=== PATIENT | female | born 1995 | race African-American/Black ===

== ENCOUNTER 2019-01-15 15:25 | Day surgery (SDC) | payer OTHER ==
[2019-01-15 16:21] VITALS: BP 118/79; BMI 29.1
--- NOTE | 2019-01-15 17:53 | PDOC.FPROB ---
FMR OB H&P: HPI - History of Present Illness Chief Complaint: n/v, sharp lower abd pain History of Present Illness: 23 yo @ 26.4wks by 8.1wk US presenting with 1 day history of abd pain. Started yesterday, described as sharp lasting a few seconds, occurring every 20 min approximately. Also has history of N/V for 3-4 days and endorses decreased PO intake. Endorses floaters/spots in vision for a few weeks. Denies severe RIVERA, RUQ pain, LOF, VB, dysuria, burning with urination. She has hx of pre-e in previous 2016. Was induced at 37 weeks. Returned to hospital about 5 days after delivery with severe range BPs. Was started on labetalol. Has not had any issues with BP during this . Also had miscarriage at 7 weeks. She did have cholecystectomy in Sep 2018. Last week patient was diagnosed with rabia off pap smear, treated with miconazole topical. Primary Care Physician: MEL Faulkner MD FMR OB H&P: Current - Care : 3 Para: 1 Gestational age: 26.4 Dating Criteria: 8.1wk US Total weight gain: 04/19/2019 - OB Labs Blood type: B RH: positive Antibody Screen: negative HIV: negative RPR: negative HepBsAg: negative Rubella: immune Urine drug screen: negative A1c: 5.1 GBS: unknown - Anatomy Survey Anatomy survey: posterior placenta FMR OB H&P: History - Past Medical History PMH: Pre-eclampsia in previous - OB History OB History: 1st: term vaginal delivery in Sep 2016 2nd: miscarriage at 7 weeks - [employer]GER History [employer]GER History: rabia last week, treated with topical miconazole - Surgical History Sx History: cholecystectomy Sep 2018 - Social History Social History: Denies tobacco, EtOH, rec drug use - Family History Family History: Mom: Diabetes Both parents: HTN FMR OB H&P: Medications - Current Home Medications: Medication Instructions Recorded Confirmed Type Vit No.130/Iron/Folic 1 each PO DAILY 09/06/16 01/15/19 History [ Tablet] Aspirin [Ecotrin Low Strength] 1 tab PO DAILY 01/15/19 01/15/19 History Allergies/Adverse Reactions: Allergies Allergy/AdvReac Type Severity Reaction Status Date / Time No Known Allergies Allergy Verified 09/16/16 07:29 FMR OB H&P: ROS - Review of Systems General: denies: fever/chills Eyes: reports: vision changes, floaters Cardiovascular: denies: chest pain, palpitation Respiratory: denies: shortness of breath Gastrointestinal: reports: abdominal pain (lower abd b/l radiating to back), nausea, vomiting, diarrhea. denies: constipation, bright red blood Genitourinary (Female): denies: dysuria, hematuria, polyuria Neurologic: denies: numbness, syncope Integumentary: denies: itching, rash Hematologic/Lymphatic: denies: prolonged or excessive bleeding FMR OB H&P: Vital Signs - Maternal Vital signs: Vital Signs - First Documented Pulse Resp BP 74 18 118/79 01/15/19 15:48 01/15/19 15:48 01/15/19 15:48 - Heart Tones Baseline: 140 Variability: moderate Acceleration: absent Deceleration: absent Category: category 1 [place] contractions every: none FMR OB H&P: Physical Exam - Physical Exam General: NAD, awake, alert and oriented HEENT: PERRLA, EOMI Heart: RRR, normal S1/S2 General: CTAB, no respiratory distress Abdomen: soft, other (TTP lower abdomen radiating to back) Musculoskeletal: pulses present Neurological: sensation to pain,touch and proprioception grossly normal Skin: capillary refill <2 seconds Lymphatic: no unusual bruising or bleeding Psychiatric: intact recent and remote memory, good judgement and insight FMR OB H&P: A/P - Problem List (1) History of pre-eclampsia Current Visit: Yes Status: Acute Code(s): Z87.59 - PERSONAL HISTORY OF COMP OF PREG, CHLDBRTH AND THE PUERP Discussion: Date/Time: 01/15/191746 1. IUP at 26.4 weeks by 8.1wk US -ddx includes UTI, will check UA -check FFN and do cervical exam check -also check cervical length 2. candidiasis -continue with miconazole 3. Hx of pre-eclampsia -no elevated BP in current -continue with ASA This H&P was discussed with Dr. Angeles who agrees with the above documentation and plan. Addendum - Attending - Attending Attestation Date/Time: 01/15/191921 I personally evaluated the patient and discussed the management with Dr. Bass I agree with the History, Examination, Assessment and Plan documented above with any addition or exceptions noted below. Dr Chan note includes a comment about "latent labor...augmentation.../+ 2". THis was entered in error. While I suspect her pain is simply round ligament pain, we are evaluating for UTI and PTL. FHT's are normal.
[2019-01-15 18:04] LABS: Bilirubin Negative (Negative); Blood, Urine Negative (Negative); Clarity CLEAR (Clear); Glucose, Urine (Dipstick) Negative (Negative); Leukocyte Negative (Negative); Nitrite Negative (Negative); Protein, Urine (Dipstick) Negative (Neg-Trace); Specific Gravity, Urine 1.015 (1.002-1.036); pH, Urine 7.5 (5.0-9.0)
[2019-01-15 18:06] LABS: Bacteria/HPF None Seen HPF (None Seen); Hyaline Casts/LPF 4-6 HYALINE CAST LPF (0-3 Hyaline); Pathc Cast-AUWi Flag 0.81 (0-2.49); RBC/HPF None Seen HPF (0-3); Squamous Epithelial 0-3 HPF (0-3); WBC/HPF 0-3 HPF (0-3)
[2019-01-15 18:09] LABS: Urine Culture Reflex No No
[2019-01-15 18:21] LABS: FFN Internal QC Analyzer PASS (PASS); FFN Internal QC Cassette PASS (PASS); Fetal Fibronectin Negative (Negative)
--- NOTE | 2019-01-15 20:42 | ULT ---
Ultrasound transvaginal limited: DATE: 01/15/2019 Time: 7:49 PM HISTORY: 23-year-old female at 26 weeks. Evaluate cervical length. FINDINGS: The cervix is closed and measures 5 cm in length. What appears to be cephalic presentation head component is near the cervix. IMPRESSION: Closed cervix 5 cm in length.
--- NOTE | 2019-01-15 20:45 | PDOC.EVN ---
Event Note - Event Note Event Note: 20:15 on 01/15/2019 FFN: negative Cervical exam: 09/09/high TVUS with cervical length between 4.86-5.15 cm No contractions Patient not in labor based on assessment above. Counseled on round ligament pain. Advised patient that she can take tylenol 1g q6h as needed. Patient advised to schedule hospital follow up visit at [facility] with primary OB provider. Silvia Lewis, DO PGY-2
== END 2019-01-15 20:17 | disposition home or self-care (01) ==
LOC: L&D/OP 15:25
PROVIDERS: ATTEND Family Medicine
DX: O99.89 Other specified diseases and conditions complicating pregnancy, childbirth and the puerperium (principal); R10.30 Lower abdominal pain, unspecified; O98.812 Other maternal infectious and parasitic diseases complicating pregnancy, second trimester; B37.9 Candidiasis, unspecified; O21.2 Late vomiting of pregnancy; Z87.59 Personal history of other complications of pregnancy, childbirth and the puerperium; Z3A.26 26 weeks gestation of pregnancy; Z79.82 Long term (current) use of aspirin
CPT/HCPCS: 51701; 81001; 82731; 99284; A4353

== ENCOUNTER 2019-01-21 17:08 | Emergency (ER) | payer OTHER ==
[2019-01-21 19:24] LABS: #Lymphocytes 1.3 thou/uL (1.20-3.40); #Monocytes 0.5 thou/uL (0.11-0.59); #Neutrophils 4.3 thou/uL (1.40-6.50); %Basophils 0.7 % (0.0-1.0); %Eosinophils 0.3 % (0.0-10.0); %Lymphocytes 21.5 % (21.0-51.0); %Monocytes 8.7 % (0.0-10.0); %Neutrophils 68.8 % (42.0-75.0); Hemoglobin 9.8 g/dL (12.0-16.0); Mean Corpuscular HGB CONC 33.8 g/dL (32.0-36.0); RBC Distribution Width 12.5 % (11.5-14.5); Red Blood Cell (RBC) Count 3.49 mill/uL (4.20-5.40); White Blood Cell (WBC) Count 6.2 thou/uL (4.8-10.8)
[2019-01-21 19:28] LABS: BHCG - Serum POSITIVE (NEGATIVE)
[2019-01-21 19:29] LABS: Pregs Control Background? CLEAR/WHITE (CLR/WHITE); Pregs Control Bar Appear? YES (CONTROL BAR)
[2019-01-21 19:54] LABS: ALT (SGPT) 8 U/L (8-55); AST (SGOT) 16 U/L (5-34); Albumin 3.2 g/dL (3.5-5.0); Alkaline Phosphatase 127 U/L (40-150); Anion Gap 12 mmol/L (10-20); BUN (Urea Nitrogen) 6 mg/dL (7.0-18.7); Bilirubin, Total 0.3 mg/dL (0.2-1.2); CK (CPK) 28 U/L (29-168); Calc. Creatinine Clearance 0 mL/min (70-130); Calcium 8.6 mg/dL (7.8-10.44); Carbon Dioxide 19 mmol/L (22-29); Chloride 107 mmol/L (98-107); Estimated GFR-MDRD Greater than 90; Globulin 3.8 g/dL (2.4-3.5); Glucose 68 mg/dL (70-105); Potassium 3.5 mmol/L (3.5-5.1); Sodium 134 mmol/L (136-145)
[2019-01-21 20:01] LABS: Hypochromia SLIGHT = 6-15 cells (100X) (0-5/hpf); MDiff Complete? YES; Mean Platelet Volume 7.3 fL (7.4-10.4); Platelet Count 269 thou/uL (130-400); Platelet Morphology Comment Appears Adequate
--- NOTE | 2019-01-23 16:54 | EKG ---
Test Reason : TACHY Blood Pressure : / mmHG Vent. Rate : 121 BPM Atrial Rate : 121 BPM P-R Int : 000 ms QRS Dur : 078 ms QT Int : 340 ms P-R-T Axes : 000 047 -12 degrees QTc Int : 482 ms Sinus tachycardia Nonspecific T wave abnormality Abnormal ECG Confirmed by OLGA DOE, HENRIQUE Still ([id number]), editorial specialist DUY VINCENT ([id number]) on 01/23/2019 4:54:24 PM Referred By: Confirmed By:HENRIQUE ESPINOZA MD
== END 2019-01-21 20:18 | disposition home or self-care (01) ==
LOC: ERS 17:08 → L&D/OP 17:08 → ERS 17:08 → EDSTATUS 17:15 → ERS 20:18
DX: D50.9 Iron deficiency anemia, unspecified (principal)
CPT/HCPCS: 36415; 80053; 82550; 84484; 84703; 85025; 86850; 86900; 86901; 93005

== ENCOUNTER 2019-01-21 20:29 | Day surgery (SDC) | payer OTHER ==
--- NOTE | 2019-01-21 20:32 | PDOC.FPROB ---
FMR OB H&P: HPI - History of Present Illness Chief Complaint: sent from clinic for iron infusion Indentification: History of Present Illness: 23YO @ 27.3 weeks by 8.1 week theresa who presented to the ER for evaluation for N/V and tachycardia as well as symptomatic anemia by her PCP. Per chart review, the patient was initially going to be sent straight to L&D for and iron infusion but the department was too full to take on another patient so she was sent to the ER instead for further evaluation. Per the patient, she has suffered from anemia and hyperemesis throughout this but has been extremely symptomatic over the last 3-4 days with reported frequent dizziness and spotty vision upon standing and N/V up to 4 times per day. She was seen in clinic on 01/16 for a routine office visit and her Hgb was noted to be 8.8 so she was started on PO ferrous sulfate. However, the patient reports she has been unable to start this medication as she could not afford it. She was seen again in the office today and noted to be tachycardic in the 130s and was therefore sent to the ER for further evaluation. The patient denies any associated fever/chills, chest pain, SOB, persistent headaches not relieved with tylenol, contractions, or vaginal bleeding, LOF or discharge. She endorses regular movement. Primary Care Physician: STEPHEN Faulkner FMR OB H&P: Current - Care : 3 Para: 1011 Gestational age: 27.3 weeks Due date: 04/19/19 Dating Criteria: 8.1 week sono - OB Labs Blood type: B RH: positive Antibody Screen: negative HIV: negative RPR: negative HepBsAg: negative Rubella: immune H&H: 9.8/28.9 today FMR OB H&P: History - Past Medical History PMH: h/o migraine headaches - OB History OB History: first - pre-e with severe features & delivered at 36.6 weeks second- SAB @ 7 weeks - Surgical History Sx History: cholecystectomy during this - Social History Social History: No TAD - Family History Family History: HTN in both parents FMR OB H&P: Medications - Current Home Medications: Medication Instructions Recorded Confirmed Type Aspirin [Ecotrin Low Strength] 1 tab PO DAILY 01/15/19 01/15/19 History Iron Fum,Ps/Folic/Bcomp,C No.9 1 cap PO DAILY #90 capsule 01/21/19 Rx [Integra Plus] Allergies/Adverse Reactions: Allergies Allergy/AdvReac Type Severity Reaction Status Date / Time No Known Allergies Allergy Verified 09/16/16 07:29 FMR OB H&P: ROS - Review of Systems General: reports: fatigue. denies: fever/chills, weight/appetite/sleep changes Eyes: reports: vision changes, scotomas (while standing) ENT: denies: nasal congestion, sore throat Cardiovascular: denies: chest pain, palpitation, edema Respiratory: denies: cough, shortness of breath Gastrointestinal: reports: nausea, vomiting. denies: abdominal pain (lower ligamentous groin/abdominal pain with movement), diarrhea, constipation Genitourinary (Female): denies: dysuria, hematuria, vaginal discharge, vaginal pain, vaginal bleeding, contractions Musculoskeletal: reports: pain Neurologic: reports: headache. denies: syncope Endocrine: reports: cold intolerance FMR OB H&P: Vital Signs - Maternal Vital signs: BP: 118/78 HR: 108 - Heart Tones Baseline: 140 Variability: moderate Acceleration: present Deceleration: absent [place] contractions every: none FMR OB H&P: Physical Exam - Physical Exam General: NAD, awake, alert and oriented HEENT: normocephalic and atraumatic, MMM, conjunctiva clear, grossly normal vision, grossly normal hearing Neck: supple, FROM Heart: RRR, normal S1/S2, no murmurs/rubs/gallops, pulses present, no edema General: CTAB, no respiratory distress, good air movement, no rales/rhonchi, no wheezing, no retractions Abdomen: soft, gravid, non-tender, bowel sound present Musculoskeletal: normal gait and station, pulses present, FROM in all four extremities Neurological: cranial nerves II through XII intact, sensation to pain,touch and proprioception grossly normal, no focal deficit Skin: no rash, good tugor, capillary refill <2 seconds Lymphatic: no unusual bruising or bleeding, no purpura, no petechia Psychiatric: intact recent and remote memory, good judgement and insight, normal mood and affect FMR OB H&P: Results - Labs Lab results: Laboratory Tests 01/21/19 18:53 Hgb 9.8 L Hct 28.9 L FMR OB H&P: A/P - Problem List (1) Hyperemesis complicating , antepartum Status: Acute Code(s): O21.0 - MILD HYPEREMESIS GRAVIDARUM (2) Iron deficiency anemia Status: Acute Code(s): D50.9 - IRON DEFICIENCY ANEMIA, UNSPECIFIED (3) History of pre-eclampsia Status: Acute Code(s): Z87.59 - PERSONAL HISTORY OF COMP OF PREG, CHLDBRTH AND THE PUERP (4) Positive GBS test Status: Acute Code(s): B95.1 - STREPTOCOCCUS, GROUP B, CAUSING DISEASES CLASSD ELSWHR Comment: PCN x3 Disposition: 23YO @ 27.3 weeks sent over from clinic for evaluation for a possible iron infusion for symptomatic anemia in . Iron deficiency anemia in pregnany: - Patient's iron only 8.8 in clinic and actually improved to 9.8 on presentation today. N/V/headaches and orthostasis more likely related to hyperemesis and patient's Hgb level not within transfusion range today so will hold not transfuse today. Counseled patient on need to start PO iron and will ensure script sent in is affordable. Hyperemesis in : - No N/V since presentation & is s/p 1L of IVFs in the ER as she was initially tachycardic in the 110s but HR now down to 108. Is tolerating PO well. - FHTs reassuring with baseline in the 140s and variability and accels present. No contractions noted. -Was just prescribed diclegis today in clinic but will send be unable to afford to wrote out written dosing for generic unisom and pyridoxine combo for patient to try. Will have patient follow-up in clinic in 1 week to ensure nausea is improving. h/o pre-e in prior : - Aware, patient's BPs WNLs and asymptomatic. Will continue ppx ASA. Dispo: Will d/c home with close follow-up in clinic in 1 week. Discussion: Date/Time: 01/21/192030 This H&P was discussed with Dr. Padgett who agrees with the above documentation and plan. Addendum - Attending - Attending Attestation Date/Time: 01/21/192248 I personally evaluated the patient and discussed the management with Dr. Grissom I agree with the History, Examination, Assessment and Plan documented above with any addition or exceptions noted below -.23YO @ 27.3 weeks by 8.1 week theresa who presented to the ER for evaluation for N/V and tachycardia. Noted to be anemic on labs 2 weeks ago and PCP had concern for symptomatic anemia. Patient initially seen in ER and repeat H/H=9.8/28.9. She reports N/V throughout this but has been extremely symptomatic over the last 3-4 days with reported frequent dizziness and spotty vision upon standing and N/V up to 4 times per day. She was seen again in the office today and noted to be tachycardic in the 130s and was therefore sent to the ER for further evaluation. The patient denies any associated fever/chills, chest pain, SOB, persistent headaches not relieved with tylenol, contractions, or vaginal bleeding, LOF or discharge. She endorses regular movement. Afebrile VSS. Agree with resident's exam. A/P: 1) Tachycardia- improved after fluids; suspect element of dehydration given patient's history of N/V. Po challenge given and tolerated well. Given instructions to take unisom and B6. 2) Anemia - H/H improved. Continue to monitor. New rx sent for oral iron. D/c home and follow- up with PCP
[2019-01-21] MEDS ORDERED: Iron Sucrose Complex 500 MG in Sodium Chloride 0.9% 250 ML 250 ML IVPB SCH (20:45)
[2019-01-21] MEDS ORDERED: Acetaminophen 500 MG TAB PO SCH (20:45)
[2019-01-21 20:59] VITALS: BMI 29.2
== END 2019-01-21 22:15 | disposition home or self-care (01) ==
LOC: L&D/OP 20:29
PROVIDERS: ATTEND Student in an Organized Health Care Education/Training Program
DX: O21.0 Mild hyperemesis gravidarum (principal); O99.012 Anemia complicating pregnancy, second trimester; D50.9 Iron deficiency anemia, unspecified; O99.89 Other specified diseases and conditions complicating pregnancy, childbirth and the puerperium; R00.0 Tachycardia, unspecified; O99.352 Diseases of the nervous system complicating pregnancy, second trimester; G43.909 Migraine, unspecified, not intractable, without status migrainosus; Z87.59 Personal history of other complications of pregnancy, childbirth and the puerperium; Z90.49 Acquired absence of other specified parts of digestive tract; Z79.82 Long term (current) use of aspirin; Z3A.27 27 weeks gestation of pregnancy
CPT/HCPCS: 36415; 80053; 82550; 84484; 84703; 85025; 86850; 86900; 86901; 93005; 96360; 99282; J1756; J7050

== ENCOUNTER 2019-04-15 06:52 | Inpatient (IN) | payer OTHER ==
[2019-04-15 07:21] VITALS: BMI 30.6
[2019-04-15] MEDS ORDERED: Penicillin G Potassium 5 MILL.UNITS VIAL ONE (07:31)
[2019-04-15] MEDS ORDERED: Fentanyl 4 mcg/Bup 0.1% Cadd 100 ML ONE (07:33)
[2019-04-15] MEDS: Lactated Ringer's 1,000 ML IV SCH ×2 (07:40→15:03)
--- NOTE | 2019-04-15 07:41 | PDOC.FPROB ---
FMR OB H&P: HPI - History of Present Illness Chief Complaint: TIUP, in labor Indentification: History of Present Illness: Pt is a @ 39.3 weeks who presents with contractions beginning @ 0500, starting q2-3 mins, painful; w/o vaginal fluid, discharge or bleeding. Pt complains of nausea. She denies fever, chills. Hx difficult to obtain due to painful, regular contractions. Primary Care Physician: VIRGINIE Faulkner FMR OB H&P: Current - Care : 3 Para: 1011 Gestational age: 39.3 Dating Criteria: 8.1 week sono Course/Complications: Hx of Gestational HTN during previous preganancy, Pre-E after previous - OB Labs Blood type: B RH: positive Antibody Screen: negative HIV: negative RPR: negative HepBsAg: negative Rubella: immune GBS: positive FMR OB H&P: History - Past Medical History PMH: History of migraine headaches - OB History OB History: Hx of Pre-E in 1st , delivery at 37.2 wks via . - Surgical History Sx History: Cholecystectomy this - Family History Family History: HTN in both parents. FMR OB H&P: Medications - Current Home Medications: Medication Instructions Recorded Confirmed Type Aspirin [Ecotrin Low Strength] 1 tab PO DAILY 01/15/19 01/15/19 History Iron Fum,Ps/Folic/Bcomp,C No.9 1 cap PO DAILY #90 capsule 01/21/19 04/15/19 Rx [Integra Plus] Allergies/Adverse Reactions: Allergies Allergy/AdvReac Type Severity Reaction Status Date / Time No Known Allergies Allergy Verified 09/16/16 07:29 FMR OB H&P: ROS - Review of Systems General: denies: fever/chills, weight/appetite/sleep changes ENT: denies: nasal congestion, rhinorrhea Cardiovascular: denies: chest pain, palpitation Respiratory: denies: cough, congestion Gastrointestinal: denies: abdominal pain, indigestion Genitourinary (Female): denies: dysuria, hematuria Musculoskeletal: denies: pain, stiffness Neurologic: denies: numbness, seizures Integumentary: denies: itching, rash FMR OB H&P: Vital Signs - Maternal Vital signs: Vital Signs - First Documented Temp Pulse Resp BP 98.5 F 86 18 133/96 H 04/15/19 07:16 04/15/19 07:16 04/15/19 07:16 04/15/19 07:16 - Heart Tones Baseline: 120 Variability: moderate Acceleration: absent Deceleration: absent Category: category 1 FMR OB H&P: Physical Exam - Physical Exam General: awake, alert and oriented HEENT: normocephalic and atraumatic, EOMI Neck: supple, FROM Chest: non-tender to palpation, no lesions Heart: normal S1/S2 General: CTAB, no respiratory distress Abdomen: soft, gravid, fundus(cm) Musculoskeletal: normal gait and station, pulses present Neurological: cranial nerves II through XII intact, no focal deficit Skin: no rash, capillary refill <2 seconds Lymphatic: no purpura, no petechia Psychiatric: good judgement and insight, normal mood and affect - Pelvic Exam Membranes: Intact FMR OB H&P: A/P - Problem List (1) History of pre-eclampsia Current Visit: No Status: Acute Code(s): Z87.59 - PERSONAL HISTORY OF COMP OF PREG, CHLDBRTH AND THE PUERP (2) Positive GBS test Current Visit: No Status: Acute Code(s): B95.1 - STREPTOCOCCUS, GROUP B, CAUSING DISEASES CLASSD ELSWHR Comment: PCLeni x3 Disposition: # [id number], TIUP, 39.3 weeks by 8.1 week Sono # Active Labor Pt presented at 5, 100, -2 and quickly progressed to 8 cm. Epidural placed. Baseline Heart Tones 130's, moderate variability, no decels/accels. - zofran prn nausea # GBS Positive - penicillin initiated # Hx of Pre-E after first - monitor blood pressures Diet: NPO Fluids: LR 125 mls/hr Dispo: Admit for active labor. Discussion: Date/Time: 04/15/19740 This H&P was discussed with [] and [] who agree with the above documentation and plan. Addendum - Attending - Attending Attestation Date/Time: 04/15/191908 I personally evaluated the patient and discussed the management with Dr. Aponte I agree with the History, Examination, Assessment and Plan documented above with any addition or exceptions noted below- 23 yo @ 39.3 weeks presented with ctx. Denies LOF, VB. (+) FM Afebrile VSS SVE 8/C/-1, Category [address] [place]- ctx q2-3 min. A/P: 1) IUP @ 39.3 weeks in advanced labr- Admit to L& D; anticipate soon. GBS (+) started on PCN prophylaxis.
[2019-04-15] MEDS ORDERED: Promethazine HCl 25 MG/ML VIAL IM PRN ×2 (07:47→08:49)
[2019-04-15] MEDS ORDERED: Ondansetron PF 4 MG/2 ML Vial IVP PRN ×2 (07:47→08:49)
[2019-04-15] MEDS ORDERED: Butorphanol Tartrate 1 MG/ML VIAL SLOW IVP PRN (07:47)
[2019-04-15] MEDS ORDERED: Lidocaine 1% (PF) 30 ML VIAL SC PRN (07:47)
[2019-04-15] MEDS ORDERED: NS / Oxytocin 40 units/1000ml 1,000 ML IV PRN (07:47)
[2019-04-15] MEDS ORDERED: Ibuprofen 800 MG TAB PO PRN (07:47)
[2019-04-15] MEDS ORDERED: hydrALAZINE 20 MG/ML VIAL SLOW IVP PRN ×2 (07:47→10:31)
[2019-04-15] MEDS ORDERED: NS / Oxytocin 40 units/1000ml 1,000 ML ONE (07:58)
[2019-04-15] MEDS ORDERED: Lidocaine 1% (PF) 30 ML VIAL ONE (07:58)
[2019-04-15] MEDS ORDERED: Penicillin G Potassium 5 MILL.UNITS in Sodium Chloride 0.9% 100 ML IVPB SCH (08:00)
[2019-04-15 08:04] LABS: Hemoglobin 11.9 g/dL (12.0-16.0); Mean Corpuscular HGB CONC 33.8 g/dL (32.0-36.0); Mean Corpuscular Hemoglobin 27.8 pg (27.0-31.0); Mean Corpuscular Volume 82.2 fL (78.0-98.0); Mean Platelet Volume 7.5 fL (7.4-10.4); Platelet Count 267 thou/uL (130-400); RBC Distribution Width 18.8 % (11.5-14.5); Red Blood Cell (RBC) Count 4.27 mill/uL (4.20-5.40); White Blood Cell (WBC) Count 6.3 thou/uL (4.8-10.8)
[2019-04-15 08:46] LABS: HBSAg Index 0.16 S/CO (0-0.99); Hep B Surf Ag Non-Reactive S/CO (NonReactive); Syphilis Antibody Nonreactive (Nonreactive); Syphilis Antibody Index 0.08 S/CO (<1.00 Non-Reactive)
[2019-04-15] MEDS ORDERED: ePHEDrine/0.9% NaCl/PF SYRINGE 50 mg/10 ml SLOW IVP PRN (08:49)
[2019-04-15] MEDS ORDERED: Acetaminophen 325 MG TAB PO PRN (08:49)
[2019-04-15] MEDS ORDERED: Naloxone HCl 0.4 mg/ml Vial IVP PRN ×2 (08:49)
[2019-04-15] MEDS ORDERED: Lactated Ringer's 500 ML IV PRN (08:49)
[2019-04-15] MEDS ORDERED: diphenhydrAMINE 50 MG/ML VIAL IVP PRN (08:49)
[2019-04-15] MEDS ORDERED: Communication Order-Pharmacy FS SCH (09:00)
[2019-04-15] MEDS ORDERED: Fentanyl 4 mcg/Bupivacaine 0.1% Cassette 100 ML EPIDURAL SCH (09:00)
[2019-04-15] MEDS ORDERED: Bupivacaine/Epinephrine 0.25% 30 ML VIAL ONE (09:00)
--- NOTE | 2019-04-15 09:03 | PDOC.LDPN ---
Labor & Delivery Progress Note - Subjective Subjective: comfortable, vaginal pressure - Objective Vital signs reviewed and normal: yes General: NAD (after epidural placed), resting, breathing through contractions Dilation: 9 Effacement: 100% Station: 1+ FHT: category 1, variability present [place] contractions every: 1 minute Procedures: Amniotomy AROM: meconium stained fluid - Assessment (1) History of pre-eclampsia Code(s): Z87.59 - PERSONAL HISTORY OF COMP OF PREG, CHLDBRTH AND THE PUERP Current Visit: No Status: Acute (2) Positive GBS test Code(s): B95.1 - STREPTOCOCCUS, GROUP B, CAUSING DISEASES CLASSD ELSWHR Current Visit: No Status: Acute Comment: PCN x3 (3) Intrauterine Code(s): Z33.1 - STATE, INCIDENTAL Current Visit: No Status: Resolved Comment: Patient is latent labor but making progress. Continue expectant management. Patient's ctx pattern too rapid for pitocin augmentation. -pt 10/100/+2 Plan: continue plan of care -: # , TIUP, 39.3 weeks - Pt is 9-10 cm/100%/+1 - FHT 120's, moderate variability, accels present, cat 1 - Continue active labor and recheck in 15-20 minutes - Amniotomy performed @ 0855 with meconium stained fluid - Epidural placed
[2019-04-15] MEDS ORDERED: diphenhydrAMINE 25 MG CAP PO PRN (10:31)
[2019-04-15] MEDS ORDERED: Lanolin Ointment 7 GM TUBE TOP PRN (10:31)
[2019-04-15] MEDS ORDERED: Milk Of Magnesia 30 ML UDCUP PO PRN (10:31)
[2019-04-15] MEDS ORDERED: Benzocaine-Menthol 82.5 ML CAN TOP PRN (10:31)
[2019-04-15] MEDS ORDERED: Preparation H Ointment 28 GM TUBE PR PRN (10:31)
[2019-04-15] MEDS ORDERED: Bisacodyl 10 MG SUPP PR PRN (10:31)
--- NOTE | 2019-04-15 10:43 | PDOC.OPDEL ---
OB Operative/Delivery Note Delivery Dr/Surgeon: Tim Padgett Hoffman Assist: none Pre-Delivery Diagnosis: active labor Procedure/Post Delivery Dx: spontaneous vaginal delivery Weeks gestation: 39 (39.3) Anesthesia: epidural - Findings A Sex: male - 1 min: 8 - 5 min: 9 - Additional Findings/Plan Placenta delivered: spontaneous Repaired Obstetrical Laceration: none Estimated blood loss: 65 ml Compilations/Other Findings: Delivering Physician: Fay Griffin Attending : Dr. Padgett Procedure: Spontaneous Vaginal Delivery Anesthesia: epidural QBL: 65 ml Pre-op Diagnosis: 1. Term intrauterine in labor 2. Hx of preeclampsia 3. GBS Positive w/ inadequate prophylaxis Post-op Diagnosis: 1. Term intrauterine , delivered 2. same as above Indications: A 23 y/o female presents in active labor Delivery Note: This is 23 yo F @ 39.3 wks who delivered a viable M at 1015 on 04/15/19. Following an uneventful antepartum course, a vigorous male was delivered over an intact perineum in the MARY position. Anterior Shoulder and then remainder of the body delivered. No nuchal cord. The head was held down and mouth and nares were bulb suctioned. Cord clamped after delayed cord clamping and cut and cord blood collected. Placenta delivered intact in the [place] with a 3 vessel cord noted. Fundal massage was performed and the fundus was firm. The cervix and vagina were inspected and found to be free of lacerations. went to nursery in good condition for routine care. Apgars were 8/9 at 1 & 5 minutes, respectively. Patient tolerated delivery well and went to after routine recovery/care. Post delivery plan: routine recovery Addendum - Attending - Attending Attestation Date/Time: 04/15/19 1148 I was present, assisted and supervised the spontaneous vaginal delivery of a viable male to this 23 yo @39+ weeks. Apgars 8/9. Placenta delivered spontaneously and intact. 3V cord. No epis or lacerations. QBL=65. Infant and mother in stable condition. Residents: Fay and Tim Faulkner
[2019-04-15] MEDS ORDERED: NS / Oxytocin 40 units/1000ml 1,000 ML IV SCH (10:45)
[2019-04-15] MEDS: Penicillin G 2.5 MILL.units 2.5 MILL.UNITS in Premix Bag 1 BAG IVPB SCH (14:49)
[2019-04-15] MEDS: Ibuprofen 800 MG TAB PO SCH ×2 (14:58→21:43)
[2019-04-15] MEDS: Ferrous Sulfate 325 MG TAB PO SCH (15:34)
[2019-04-15] MEDS: Docusate Calcium (SURFAK) 240 MG CAP PO SCH (21:43)
[2019-04-16] MEDS: Lactated Ringer's 1,000 ML IV SCH ×3 (01:31→16:24)
[2019-04-16] MEDS: Penicillin G 2.5 MILL.units 2.5 MILL.UNITS in Premix Bag 1 BAG IVPB SCH ×5 (01:31→16:24)
[2019-04-16 05:09] LABS: #Lymphocytes 1.9 thou/uL (1.20-3.40); #Monocytes 0.8 thou/uL (0.11-0.59); #Neutrophils 5.7 thou/uL (1.40-6.50); %Basophils 0.1 % (0.0-1.0); %Eosinophils 0.3 % (0.0-10.0); %Lymphocytes 22.3 % (21.0-51.0); %Monocytes 9.4 % (0.0-10.0); %Neutrophils 67.9 % (42.0-75.0); Anisocytosis SLIGHT = 6-15 cells (100X) (0-5/hpf); Hemoglobin 10.8 g/dL (12.0-16.0); MDiff Complete? YES; Mean Corpuscular HGB CONC 34.3 g/dL (32.0-36.0); Mean Corpuscular Hemoglobin 28.7 pg (27.0-31.0); Mean Corpuscular Volume 83.7 fL (78.0-98.0); Mean Platelet Volume 7.8 fL (7.4-10.4); Platelet Count 220 thou/uL (130-400); RBC Distribution Width 18.6 % (11.5-14.5); Red Blood Cell (RBC) Count 3.78 mill/uL (4.20-5.40); White Blood Cell (WBC) Count 8.4 thou/uL (4.8-10.8)
[2019-04-16] MEDS: Ibuprofen 800 MG TAB PO SCH ×3 (05:42→21:51)
--- NOTE | 2019-04-16 06:27 | PDOC.PP ---
Post Progress Note Post Day #: 1 Vital Signs (12 hours) Temp Pulse Resp BP Pulse Ox 04/16/19 05:42 97.9 F 64 18 111/64 04/16/19 00:48 98.3 F 72 18 107/52 L 04/15/19 19:23 97.8 F 71 16 104/56 L 97 Weight Weight 83.461 kg Result Diagrams: 04/16/19 04:30 Additional Labs: Post Labs Blood Type B POSITIVE 04/15/19 07:53 Hep Bs Antigen Non-Reactive S/CO (NonReactive) 04/15/19 07:53 (1) History of pre-eclampsia Code(s): Z87.59 - PERSONAL HISTORY OF COMP OF PREG, CHLDBRTH AND THE PUERP Status: Acute (2) Positive GBS test Code(s): B95.1 - STREPTOCOCCUS, GROUP B, CAUSING DISEASES CLASSD ELSWHR Status : Acute Comment: [place] x3 - Assessment/Plan # [id number], TIUP, 39.3 weeks by 8.1 week Sono # Term Delivery, , no lacs - routine care # GBS Positive - penicillin administered but not adequately treated before delivery. Monitor for signs of infection. # Hx of Pre-E after first - monitor blood pressures Diet: Regular Diet Fluids: PO intake Dispo: Admit for post- care.
--- NOTE | 2019-04-16 06:34 | PDOC.PP ---
Post Progress Note Post Day #: 1 Subjective: Pain well controlled. Lochia is about the same as her normal period. Eating, voiding, passing flatus, ambulating well. PO intake tolerated: yes Flatus: yes Ambulation: yes Vital Signs (12 hours) Temp Pulse Resp BP Pulse Ox 04/16/19 05:42 97.9 F 64 18 111/64 04/16/19 00:48 98.3 F 72 18 107/52 L 04/15/19 19:23 97.8 F 71 16 104/56 L 97 Weight Weight 83.461 kg - Physical Examination General: NAD Cardiovascular: no m/r/g, RRR Respiratory: clear to auscultation bilaterally, non-labored breathing Abdominal: + bowel sounds, lochia (same as normal period), no distention, appropriately TTP Fundus firm & at: firm, below umbilicus Psychiatric: A&Ox3, normal affect Result Diagrams: 04/16/19 04:30 Additional Labs: Post Labs Blood Type B POSITIVE 04/15/19 07:53 Hep Bs Antigen Non-Reactive S/CO (NonReactive) 04/15/19 07:53 (1) Iron deficiency anemia Code(s): D50.9 - IRON DEFICIENCY ANEMIA, UNSPECIFIED Status: Chronic (2) Positive GBS test Code(s): B95.1 - STREPTOCOCCUS, GROUP B, CAUSING DISEASES CLASSD ELSWHR Status : Acute Comment: PCN x3 (3) Vaginal delivery Code(s): O80 - ENCOUNTER FOR FULL-TERM UNCOMPLICATED DELIVERY Status: Acute (4) History of pre-eclampsia Code(s): Z87.59 - PERSONAL HISTORY OF COMP OF PREG, CHLDBRTH AND THE PUERP Status: Chronic - Assessment/Plan 23 yo now delivered vigorous TAGA M by at 10:15 on . PPD #1. #Term , PPD#1 - No vaginal lacerations. Eating, voiding, passing flatus, ambulating. - Pain is well controlled, continue Ibuprofen PRN - , having difficulty with latch. consulted. - Baby doing well, mother desires circumcision #GBS positive -inadequate ppx. No current s/s infection, VSS -will continue to monitor for s/s infection #Anemia of -QBL 65 ml. Hgb 11.9 -> 10.8, VSS -Continue daily Fe with stool softener #Hx of post- pre-eclampsia -History of post- pre-eclampsia -Blood pressures well controlled at this time, most recently 111/64 Dispo: admitted to post unit, likely home tomorrow. Addendum - Attending - Attending Attestation Date/Time: 04/16/19 1051 I personally evaluated the patient and discussed the management with Dr. Tim Faulkner I agree with the History, Examination, Assessment and Plan documented above with any addition or exceptions noted below - Patient without complaints. Afebrile VSS A/P: 1) PPD#1 s/p - continue routine care.
[2019-04-16] MEDS ORDERED: Prenatal Vitamin 1 TAB PO SCH (09:00)
[2019-04-16] MEDS: Ferrous Sulfate 325 MG TAB PO SCH ×2 (09:01→17:42)
[2019-04-16] MEDS: Docusate Calcium (SURFAK) 240 MG CAP PO SCH ×2 (09:13→21:51)
[2019-04-16] MEDS ORDERED: Adacel (T-DAP) 0.5 ML SYRINGE IM ONE (10:31)
[2019-04-17] MEDS: Penicillin G 2.5 MILL.units 2.5 MILL.UNITS in Premix Bag 1 BAG IVPB SCH ×3 (00:51→09:38)
[2019-04-17] MEDS: Lactated Ringer's 1,000 ML IV SCH (00:51)
[2019-04-17] MEDS: Ibuprofen 800 MG TAB PO SCH (05:55)
--- NOTE | 2019-04-17 08:14 | PDOC.PP ---
Post Progress Note Post Day #: 2 Subjective: Eating, voiding, passing flatus with small stool passed. Pain is well controlled. Denies headache, vision changes, SOB, RUQ abdominal pain. Does report some non-radiating chest pressure when she lays flat. Pain is worse when she lifts her head up. Resolves when she is sitting upright. PO intake tolerated: yes Flatus: yes Ambulation: yes Weight Weight 83.461 kg - Physical Examination General: NAD Cardiovascular: no m/r/g, RRR Respiratory: clear to auscultation bilaterally, non-labored breathing Abdominal: + bowel sounds, lochia (minimal) Fundus firm & at: below umbilicus Neurological: no gross focal deficits Psychiatric: A&Ox3, normal affect Result Diagrams: 04/17/19 09:26 04/17/19 09:26 Additional Labs: Post Labs Blood Type B POSITIVE 04/15/19 07:53 Hep Bs Antigen Non-Reactive S/CO (NonReactive) 04/15/19 07:53 (1) Iron deficiency anemia Code(s): D50.9 - IRON DEFICIENCY ANEMIA, UNSPECIFIED Status: Chronic (2) Positive GBS test Code(s): B95.1 - STREPTOCOCCUS, GROUP B, CAUSING DISEASES CLASSD ELSWHR Status : Acute Comment: PCN x3 (3) Vaginal delivery Code(s): O80 - ENCOUNTER FOR FULL-TERM UNCOMPLICATED DELIVERY Status: Acute (4) History of pre-eclampsia Code(s): Z87.59 - PERSONAL HISTORY OF COMP OF PREG, CHLDBRTH AND THE PUERP Status: Chronic - Assessment/Plan 23 yo now delivered vigorous TAGA M infant by at 10:15 on . PPD #2. #Term , PPD#2 - No vaginal lacerations. Eating, voiding, passing flatus, passed small stool, ambulating. - Pain is well controlled, continue Ibuprofen PRN - , was able to latch with nurses help last night. - Baby doing well, mother desires circumcision. Consent signed #GBS positive -PNCx1, inadequate ppx. No current s/s infection, VSS #Anemia of -QBL 65 ml. Hgb 11.9 -> 10.8, VSS -Continue daily Fe with stool softener #Hx of post- pre-eclampsia -History of post- pre-eclampsia -Had normal BP yesterday, however had elevated blood pressure this AM, 143/85. No headache/vision changes. -Initiate Pre-E r/o with CBC, CMP, pro/cr ratio. It negative, patient stable to go home with precautions. Dispo: Likely home later today Addendum - Attending - Attending Attestation Date/Time: 04/17/19 1039 I personally evaluated the patient and discussed the management with Dr. Tim Faulkner I agree with the History, Examination, Assessment and Plan documented above with any addition or exceptions noted below - Patient without complaints. Denies any Parker, visual change. Afebrile BP 140s/80s. A/P: 1) PPD#2 s/p - doing well. 2) Elevated BP- h/o pre-eclampsia previous - will check Pre -E labs- if normal, d/c home with close follow-up. IF abnormal, monitor for another day.
[2019-04-17] MEDS: Ferrous Sulfate 325 MG TAB PO SCH (09:38)
[2019-04-17] MEDS: Docusate Calcium (SURFAK) 240 MG CAP PO SCH (09:39)
[2019-04-17 09:42] LABS: Hemoglobin 11.1 g/dL (12.0-16.0); Mean Corpuscular Hemoglobin 28.1 pg (27.0-31.0); Mean Corpuscular Volume 82.9 fL (78.0-98.0); Mean Platelet Volume 7.8 fL (7.4-10.4); Platelet Count 228 thou/uL (130-400); RBC Distribution Width 18.9 % (11.5-14.5); Red Blood Cell (RBC) Count 3.94 mill/uL (4.20-5.40); White Blood Cell (WBC) Count 6.6 thou/uL (4.8-10.8)
[2019-04-17 09:58] LABS: Anisocytosis SLIGHT = 6-15 cells (100X) (0-5/hpf); Hypochromia SLIGHT = 6-15 cells (100X) (0-5/hpf); Lymphocytes 31 % (21-51); MDiff Complete? YES; Monocytes 9 % (0-10); Neutrophil 60 % (42-75); Platelet Morphology Comment Appears Adequate
[2019-04-17 09:59] LABS: ALT (SGPT) 15 U/L (8-55); AST (SGOT) 17 U/L (5-34); Albumin 2.6 g/dL (3.5-5.0); Alkaline Phosphatase 182 U/L (40-150); Anion Gap 10 mmol/L (10-20); BUN (Urea Nitrogen) 9 mg/dL (7.0-18.7); Bilirubin, Total 0.2 mg/dL (0.2-1.2); Calc. Creatinine Clearance 164 mL/min (70-130); Calcium 8.5 mg/dL (7.8-10.44); Carbon Dioxide 23 mmol/L (22-29); Chloride 109 mmol/L (98-107); Estimated GFR-MDRD Greater than 90; Globulin 3.3 g/dL (2.4-3.5); Glucose 74 mg/dL (70-105); Potassium 3.8 mmol/L (3.5-5.1); Protein, Total 5.9 g/dL (6.0-8.3); Sodium 138 mmol/L (136-145)
[2019-04-17 11:14] LABS: Bacteria/HPF None Seen HPF (None Seen); Bilirubin Negative (Negative); Blood, Urine Trace (Negative); Clarity Clear (Clear); Glucose, Urine (Dipstick) Normal (Negative); Leukocyte 25 Leu/uL (Negative); Mucous/LPF Rare LPF (<2+); Nitrite Negative (Negative); Protein, Urine (Dipstick) 10 mg/dL (Neg-Trace); Squamous Epithelial 0-3 HPF (0-3); Urobilinogen Normal mg/dL (Less than 2)
[2019-04-17 11:38] LABS: Creatinine, Urine 138.11 mg/dL (47-110)
[2019-04-17 13:10] VITALS: BP 124/65; TEMP 98.5
== END 2019-04-17 14:20 | disposition home or self-care (01) | DRG 807 ==
LOC: L&D/OP 06:52 → L&D 07:58 → 3SW 13:08
PROVIDERS: ADMIT Family Medicine; ATTEND Family Medicine
PROC: 10E0XZZ Delivery of Products of Conception, External Approach (ICD-10-PCS; principal; 2019-04-16)
DX: O99.824 Streptococcus B carrier state complicating childbirth (principal); Z37.0 Single live birth; O77.0 Labor and delivery complicated by meconium in amniotic fluid; O99.02 Anemia complicating childbirth; D50.9 Iron deficiency anemia, unspecified; Z3A.39 39 weeks gestation of pregnancy; Z90.49 Acquired absence of other specified parts of digestive tract
CPT/HCPCS: 36415; 51702; 80053; 81001; 82570; 84156; 85025; 85027; 86780; 86850; 86900; 86901; 87340; 99285; A4353; J2001; J2540